=== PATIENT | male | born 1965 | race Hispanic/Latino ===

== ENCOUNTER 2018-09-09 12:57 | Inpatient (IN) | payer OTHER ==
[2018-09-09 14:13] LABS: #Eosinphils 0.1 thou/uL (0.0-0.7); #Lymphocytes 0.4 thou/uL (1.20-3.40); #Monocytes 0.3 thou/uL (0.11-0.59); #Neutrophils 2.2 thou/uL (1.40-6.50); %Basophils 1.3 % (0.0-1.0); %Eosinophils 4.5 % (0.0-10.0); %Lymphocytes 12.7 % (21.0-51.0); %Monocytes 8.4 % (0.0-10.0); %Neutrophils 73.2 % (42.0-75.0); Mean Corpuscular HGB CONC 33.9 g/dL (32.0-36.0); Mean Corpuscular Hemoglobin 31.7 pg (27.0-31.0); Mean Corpuscular Volume 93.5 fL (78.0-98.0); Mean Platelet Volume 6.5 fL (7.4-10.4); Platelet Count 234 thou/uL (130-400); RBC Distribution Width 15.2 % (11.5-14.5); Red Blood Cell (RBC) Count 2.53 mill/uL (4.70-6.10)
[2018-09-09 14:32] LABS: ALT (SGPT) 13 U/L (8-55); AST (SGOT) 8 U/L (5-34); Albumin 2.8 g/dL (3.5-5.0); Alkaline Phosphatase 145 U/L (40-150); Anion Gap 11 mmol/L (10-20); BUN (Urea Nitrogen) 45 mg/dL (8.4-25.7); Bilirubin, Total 0.5 mg/dL (0.2-1.2); Calc. Creatinine Clearance 0 mL/min (70-130); Carbon Dioxide 14 mmol/L (22-29); Chloride 105 mmol/L (98-107); Estimated GFR-MDRD 27; Globulin 3.8 g/dL (2.4-3.5); Potassium 4.5 mmol/L (3.5-5.1); Protein, Total 6.6 g/dL (6.0-8.3); Sodium 125 mmol/L (136-145)
[2018-09-09 14:35] LABS: Glucose 697 mg/dL (70-105)
--- NOTE | 2018-09-09 16:15 | HP ---
PRIMARY CARE PHYSICIAN: City call admission. REASON FOR ADMISSION: The patient is an inmate transfer from [facility] for hematemesis. HISTORY OF PRESENT ILLNESS: A 53-year-old male who appears older than his stated age who has underlying history of cirrhosis of liver with portal hypertension. He also has underlying esophageal varices. He was having upper GI bleed. There was no bed available at [facility] and that is why patient was transferred. He evaluated at [place]. Patient was started on octreotide drip and Protonix drip. The patient is transferred to higher level of care. Patient also has underlying diabetes type 2, insulin requiring. He was diagnosed with hepatic encephalopathy and hyperglycemia. At this point, patient is not able to provide any good history because of underlying lethargy and mental status change. Dr. Bustamante, GI specialist already evaluated in the emergency room, this patient will be admitted to Intermediate Care Unit for close monitoring. REVIEW OF SYSTEMS: All review of systems tried to review with the patient, but unable to review because of his level of mental status. PAST MEDICAL HISTORY: Based on his medication, patient has dyslipidemia, recurrent hepatic encephalopathy, hypertension, chronic anemia, cirrhosis of liver with portal hypertension, esophageal varices, hypertension, hypothyroidism , gastroesophageal reflux disease, benign enlargement of prostate, asthma, diabetes type 2. PAST PSYCHIATRIC HISTORY: Anxiety and depression. PAST SURGICAL HISTORY: Patient is not able to provide any previous surgical history at this point because of his cognitive status. FAMILY HISTORY: The patient is not able to provide any family history because of his cognitive status. ALLERGIES: No known drug allergy. SOCIAL HISTORY: Pt is from [facility], he currently denies alcohol abuse, smoking or drug abuse. CURRENT HOME MEDICATIONS: Lipitor 40 mg p.o. at bedtime, rifaximin 600 mg twice daily, Coreg 12.5 mg twice daily, ferrous sulfate 325 mg twice daily, Lasix 40 mg twice daily, hydralazine 25 mg 3 times daily, lactulose 10 grams twice daily, levothyroxine 100 mcg p.o. daily, omeprazole 20 mg p.o. daily, ranitidine 150 mg twice daily, terazosin 5 mg p.o. daily, Proventil inhaler as needed basis, Benadryl 25 mg at bedtime, Cymbalta 30 mg p.o. daily, Novolin R 3 units subcu twice daily, Lantus 4 units subcu twice daily, Zoloft 50 mg p.o. at bedtime. EMERGENCY ROOM COURSE: Patient is given Protonix drip and octreotide drip. The patient is also given Zofran 8 mg and insulin 8 units subcu at other emergency room. PHYSICAL EXAMINATION: VITAL SIGNS: Currently, blood pressure 150/98, pulse 60, respiratory rate 18, temperature 98.0, saturation 100% on room air, weight 81 kilograms. GENERAL: Patient is appearing older than his stated age. He is hypertensive. He is incoherent. HEAD: Normocephalic. Baldness noted. Atraumatic. EYES: Icterus noted. No nystagmus. ENT: Oropharynx within normal limits. Dry appearing mucous membranes, no oral lesion, no pharyngeal erythema. Pallor mucous membranes. NECK: Supple, no JVD, no thyromegaly, no carotid bruit. LUNGS: Clear to auscultation without any rhonchi or rales. CARDIAC: S1, S2 regular. Hemic murmur noted, no gallop, no rub. ABDOMEN: Soft. Ascites noted and umbilical hernia noted. No tenderness, no peritoneal sign, no guarding, no rigidity, no rebound. BACK: Examination unremarkable, no CVA tenderness. EXTREMITIES: Upper extremity passive movements of all joints are normal. Lower extremities: No edema. Good distal pulsation. SKIN: No skin rash, pallor skin, icterus noted on the skin. PSYCHIATRIC: Flat affect. NEUROLOGIC: Grossly nonfocal examination. Asterixis noted. HEMATOLOGIC: No lymphadenopathy. Pallor plus. SIGNIFICANT LABORATORY DATA: 1. Hemoglobin 7.3 at other emergency room, hematocrit 22, glucose 997, sodium 122. Troponin negative. Ammonia 70. Currently, CBC; WBC 3.0, hemoglobin 8.0, platelet 234. BMP: Sodium 125, potassium 4.5, chloride 105, carbon dioxide 14 , anion gap 11, BUN 45, creatinine 2.53, glucose 697, calcium 8.0. 2. LFT: AST 8, ALT 13, alkaline phosphatase 145, albumin 2.8. ASSESSMENT AND PLAN/IMPRESSION: 1. Acute hepatic encephalopathy. Patient has elevated ammonia, likely related with cirrhosis of liver and precipitated by gastrointestinal bleed. The patient will be given lactulose 30 mL p.o. b.i.d. and as needed basis. We will also continue rifaximin 550 mg twice daily. 2. Acute upper gastrointestinal bleed, most likely related with cirrhosis of liver with portal hypertension and esophageal varices. Stave Saw Operator already consulted and evaluated this patient and he will need upper endoscopic evaluation. We will closely monitor in IMCU. We will continue to treat with octreotide drip, Protonix drip and monitor hemoglobin and hematocrit. If hemoglobin drops below 8, then we will consider transfusion. 3. Anemia due to acute blood loss. Currently, hemoglobin is stable and better than other emergency room. We will monitor the H&H and consider transfusion below hemoglobin 8. 4. Acute kidney failure. The patient has acute kidney failure. We will give him IV fluid with half NS at 75 mL per hour and we will monitor renal function. Nephrology will be consulted. 5. Hyponatremia likely due to pseudohyponatremia from hyperglycemia as well as from cirrhosis. We will check urine sodium, creatinine, plasma and urine osmolarity. We will also check TSH and random cortisol. Nephrology on the case. 6. SBP prophylaxis. Because of acute GI bleed, we will continue with Rocephin 1 gram q.24 hours for SBP prophylaxis. 7. Hyperglycemia associated with diabetes type 2. We will check hemoglobin A1c. We will monitor Accu-Chek every 2 hourly and cover with insulin as per sliding scale. We will also start Lantus 5 units subcutaneously b.i.d. 8. Hypothermia, rule out sepsis, likely related with blood loss, currently resolved. 9. Hypertension. We will use p.r.n. blood pressure medication, hydralazine and labetalol for blood pressure more than 160. 10. Anxiety and depression. We will hold on current home medications Cymbalta and we will resume when patient is more stable. We will also resume Zoloft when patient is more stable. 11. Dyslipidemia. We will resume Lipitor 40 mg p.o. at bedtime when patient is able to take p.o. 12. Hypothyroidism. We will continue Synthroid 100 mcg p.o. daily when patient able to take p.o. 13. Deep venous thrombosis prophylaxis. Sequential compression device boots only. No Lovenox because of bleeding. 14. Gastrointestinal prophylaxis, Protonix 40 mg IV b.i.d. 15. Code status: The patient is FULL CODE. The patient does not have any surrogate decision maker. Disposition plan based on clinical course. We are expecting patient's stay in hospital more than 2 midnights. Plan of care discussed with the patient in detail. EMETERIO
[2018-09-09] MEDS ORDERED: Sodium Chloride 0.9% 1,000 ML IV SCH (17:15)
[2018-09-09] MEDS ORDERED: Octreotide Acetate 1,250 MCG in Sodium Chloride 0.9% 250 ML 250 ML IVPB SCH (17:20)
[2018-09-09] MEDS ORDERED: Labetalol HCl 100 MG/20 ML VIAL SLOW IVP PRN (17:20)
[2018-09-09] MEDS ORDERED: Dextrose 50% Abboject 50 ML SYRINGE SLOW IVP PRN (17:20)
[2018-09-09] MEDS ORDERED: Ondansetron PF 4 MG/2 ML Vial IVP PRN (17:20)
[2018-09-09] MEDS ORDERED: Dextrose 5% in Water 1,000 ML IV PRN (17:20)
[2018-09-09] MEDS ORDERED: Bisacodyl 10 MG SUPP PR PRN (17:20)
[2018-09-09] MEDS ORDERED: hydrALAZINE 20 MG/ML VIAL SLOW IVP PRN (17:20)
[2018-09-09] MEDS ORDERED: Eucerin (Mineral Oil/Petrolatum,White) 30 gm Jar TOP PRN (17:20)
[2018-09-09] MEDS ORDERED: Sodium Chloride 0.65% Nasal 44 ML BOT EA NARE PRN (17:20)
[2018-09-09] MEDS ORDERED: Artificial Tears 18 DROP/0.9 ML EA EYE PRN (17:20)
[2018-09-09] MEDS: cefTRIAXone\\ROCEPHIN 1 GM in Sodium Chloride 0.9% 100 ML IVPB SCH (18:01)
[2018-09-09] MEDS: Sodium Chloride 0.45% 1,000 ML IV SCH (18:03)
[2018-09-09 18:32] LABS: INR-International Normal Ratio 1.1; Prothrombin Time 14.5 SEC (12.0-14.7)
[2018-09-09 18:40] LABS: Magnesium 1.8 mg/dL (1.6-2.6)
[2018-09-09 18:57] LABS: Bilirubin Negative (Negative); Blood, Urine Large (Negative); Clarity CLEAR (Clear); Glucose, Urine (Dipstick) >=1000 mg/dL (Negative); Leukocyte Negative (Negative); Nitrite Negative (Negative); Protein, Urine (Dipstick) 100 mg/dL (Neg-Trace); Specific Gravity, Urine 1.019 (1.002-1.036)
[2018-09-09 18:58] LABS: Bacteria/HPF None Seen HPF (None Seen); Hyaline Casts/LPF 0-3 HYALINE CAST LPF (0-3 Hyaline); Pathc Cast-AUWi Flag 0.14 (0-2.49); RBC/HPF 21-50 HPF (0-3); Squamous Epithelial None Seen HPF (0-3)
[2018-09-09 19:07] LABS: Ferritin 304.55 ng/mL (22-322)
[2018-09-09 19:08] LABS: Thyroid Stimulating Hormone 2.5771 uIU/mL (0.35-4.94)
[2018-09-09 19:17] LABS: Osmolality, Urine 400 mOsm/kg (300-900)
[2018-09-09 19:24] LABS: HBCM Index 0.11 S/CO (0-0.79); HBSAg Index 0.21 S/CO (0-0.99); Hep A IgM AB Non-Reactive (NonReactive); Hep A IgM S/CO 0.18 S/CO (0-0.79); Hep B Surf Ag Non-Reactive S/CO (NonReactive); Hepatitis B Core IGM Abs Non-Reactive (NonReactive)
[2018-09-09 19:25] LABS: Sodium, Urine 21 mmol/L (Not Available)
[2018-09-09 20:12] LABS: Hep C IgG Ab Reflex HepC Qnt (NonReactive)
[2018-09-09 20:13] LABS: Hep C Index 12.97 S/CO (0-0.79)
[2018-09-09] MEDS: Pantoprazole 40 MG VIAL IVP SCH (20:22)
[2018-09-09] MEDS: HumaLOG 300 UNITS/3 ML VIAL SC PRN (20:22)
[2018-09-09] MEDS: Insulin Glargine 5 UNITS in Pre-Filled Syringe SC SCH (20:22)
--- NOTE | 2018-09-09 20:50 | CON ---
DATE OF CONSULTATION: 09/09/2018 REQUESTING PHYSICIAN: Maryellen Ashraf M.D. REASON FOR CONSULTATION: Hematemesis. HISTORY OF PRESENT ILLNESS: Delfino Zamora is a 53-year-old man who was transferred here from the [facility] Emergency Department, as evidently [facility] did not have any available beds. His history is obtained completely through the medical record as he is currently encephalopathic and can give me no details on his history at all. He does come with some helpful records regarding his recent hospi talization at [facility]. 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 Burke schwarz has a history of hepatic encephalopathy and ascites, for which he has undergone TIPS placement in t he past. He also has severe diabetes which is poorly controlled and chronic kidney disease. He also evidently has a history of esophageal cancer and has undergone chemotherapy for this, though I canno t see any other details on when this was and what the outcome was, etc. At any rate, he was recently hospitalized to [facility] for 2 weeks from 08/22/2018-09/05/2018 and just got out a few days ago. Hospit al records from that time list diagnosis of hepatic encephalopathy, for which he was treated with lac tulose and rifaximin, also chronic anemia. Note, his hemoglobin was 7.4 on discharge from the hospit al. He had ascites and had a diagnostic paracentesis, which was negative for SBP. He was diuresed d uring that hospitalization. There is also a note that Interventional Radiology interrogated his TIPS and it was found to be patent, and no further intervention on the tips was recommended, particularly with potential to worsen hepatic encephalopathy. There is also a note that he had multiple episodes of hematemesis during that admission, but that hemoglobin was stable and this was managed conservati vely without endoscopy, because his last EGD in 05/2018, evidently demonstrated no varices. I do not have any formal EGD reports, and again I am unsure as to the status of the esophageal cancer. At any rate, the patient evidently presented to the [facility] early this morning after having an episode of acute hematemesis. The notes merely state that he was covered in red bloo d and evidently was again encephalopathic. Laboratory studies from that emergency department demonst rated hemoglobin 7.3, really not much change from his recent discharge hemoglobin. His INR was 1.2. Ammonia was 70 and glucose was 997. He was transferred here for further evaluation and management. Upon arrival, there has been no further emesis. The patient has been hemodynamically stable. He is grossly encephalopathic, can only answer limited yes or no questions regarding his symptoms. He has not had any bowel movements to suggest melena or hematochezia. He is not currently complaining of a ny abdominal pain, nausea, specifically when I asked. REVIEW OF SYSTEMS: Unable to obtain complete review of systems due to the degree of the patient's en cephalopathy. PAST MEDICAL HISTORY: Hepatic encephalopathy; TIPS placement; cirrhosis secondary to hepatitis C, ge notype 3A; diabetes; BPH; urinary retention; chronic kidney disease stage 3; esophageal cancer, stat us post chemotherapy, I do not have any other details on this; recent EGD in 05/2017, evidently showi ng no esophageal varices; ascites; chronic anemia. ALLERGIES: No known drug allergies. OUTPATIENT MEDICATIONS: Lipitor, rifaximin 600 mg twice daily, Coreg, ferrous sulfate 325 mg twice d aily, Lasix 40 mg twice daily, hydralazine, lactulose 10 grams twice daily, levothyroxine 100 mcg trista ly, omeprazole 20 mg daily, Ranitidine 150 mg twice daily, terazosin, albuterol inhaler as needed, Be nadryl 25 mg at bedtime, Cymbalta, Novolin insulin, Lantus insulin, Zoloft. FAMILY HISTORY: Unable to obtain from the patient due to his cognitive status. SOCIAL HISTORY: I note that the patient is incarcerated, unable to obtain any further social history due to the patient's altered mental status. PHYSICAL EXAMINATION: VITAL SIGNS: Pulse 69, blood pressure 173/103, 100% oxygen saturation on room air. GENERAL: A 53-year-old man lying in bed comfortably, in no distress but overtly encephalopathic. SKIN: He is pale. He has tattoos covering most of his body and neck. No jaundice. EYES: No scleral icterus. Extraocular movements intact. ENT: Mucous membranes moist, no oral lesions. LYMPH: No submandibular or supraclavicular lymphadenopathy. THYROID: Nontender to palpation. MENTAL: He is somnolent though arousable. He can tell me his first name, he cannot tell me the date or where he is. He cannot even tell me his date of . HEART: Regular rate and rhythm. LUNGS: Clear to auscultation bilaterally. ABDOMEN: Mild distention. Dull to percussion in the flanks. Bowel sounds present, soft and nontend er to deep palpation throughout. No masses or organomegaly appreciated. EXTREMITIES: No peripheral edema. VESSELS: Radial pulses 2+ bilaterally. NEUROLOGICAL: Cranial nerves II-XII appear to be intact bilaterally. He moves all extremities. LABORATORY STUDIES: INR 1.2, ammonia 70. WBC 3; hemoglobin is 8.0, slightly up from the other ER; p latelets 234; MCV 93.5. Sodium 125, potassium 4.5, BUN 45, creatinine 2.53, glucose 697. LFTs are a ctually all essentially normal with total bilirubin 0.5, alkaline phosphatase 145, AST 8, ALT 13, alb umin 2.8. ASSESSMENT: 1. Hematemesis, acute. 2. History of esophageal cancer. 3. Chronic anemia, appears to be at recent baseline. PLAN: 1. I note that during the patient's recent hospitalization at [facility], it was documented to have severa l episodes of hematemesis which were all managed conservatively, his hemoglobin never dropped. Note that he really does not have any prior history of esophageal varices and he has had a TIPS placement which was recently interrogated and found to be patent, so he really should not have any manifestatio ns of portal hypertension. Clinically, this does not represent a variceal bleed and I think the octr eotide could be discontinued. On the other hand, I do not have any actual reports from any of his pr ior EGDs, and I really am not clear on the status of his esophageal cancer other than that, it was ev idently treated with chemotherapy. I do think it would be reasonable to perform upper endoscopy this admission, though not urgently. Agree with a PPI drip for now, and we will plan for diagnostic EGD tomorrow. Obviously, trend the H&H and transfuse as needed. 2. Hepatic encephalopathy. This is quite overt at this time. Unclear what his compliance has been with lactulose and rifaximin. Please resume lactulose and rifaximin. 3. 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 Notably, his INR is 1.2, creatinine 2.53. A FP was evidently normal during recent hospitalization. He gets his care through the residential system at [facility], and following this hospitalization, liver care should be resumed there. I do not see any clin ical evidence suggestive of SBP, and recent diagnostic paracentesis during his recent hospitalization was evidently negative for SBP. I see no reason to repeat paracentesis at this time. I do agree wi th the Rocephin for SBP prophylaxis in the context of gastrointestinal bleeding in a cirrhotic patien t. We will see for EGD tomorrow morning. Further recommendations following endoscopy. Please call back anytime with questions or concerns.
[2018-09-09 23:04] LABS: Hemoglobin 8.8 g/dL (14.0-18.0)
[2018-09-10 03:38] LABS: #Eosinphils 0.3 thou/uL (0.0-0.7); #Lymphocytes 0.5 thou/uL (1.20-3.40); #Monocytes 0.4 thou/uL (0.11-0.59); #Neutrophils 2.4 thou/uL (1.40-6.50); %Basophils 0.7 % (0.0-1.0); %Eosinophils 8.3 % (0.0-10.0); %Lymphocytes 13.7 % (21.0-51.0); %Monocytes 9.9 % (0.0-10.0); %Neutrophils 67.4 % (42.0-75.0); Hemoglobin 8.7 g/dL (14.0-18.0); Mean Corpuscular HGB CONC 34.5 g/dL (32.0-36.0); Mean Corpuscular Hemoglobin 31.3 pg (27.0-31.0); Mean Corpuscular Volume 90.8 fL (78.0-98.0); Mean Platelet Volume 6.3 fL (7.4-10.4); Platelet Count 221 thou/uL (130-400); RBC Distribution Width 14.7 % (11.5-14.5); Red Blood Cell (RBC) Count 2.78 mill/uL (4.70-6.10); White Blood Cell (WBC) Count 3.6 thou/uL (4.8-10.8)
[2018-09-10 03:55] LABS: ALT (SGPT) 12 U/L (8-55); Albumin 2.5 g/dL (3.5-5.0); Alkaline Phosphatase 108 U/L (40-150); Anion Gap 9 mmol/L (10-20); BUN (Urea Nitrogen) 44 mg/dL (8.4-25.7); Bilirubin, Total 0.7 mg/dL (0.2-1.2); Calc. Creatinine Clearance 39 mL/min (70-130); Calcium 7.9 mg/dL (7.8-10.44); Carbon Dioxide 17 mmol/L (22-29); Chloride 108 mmol/L (98-107); Estimated GFR-MDRD 29; Globulin 3.5 g/dL (2.4-3.5); Glucose 231 mg/dL (70-105); Potassium 4.3 mmol/L (3.5-5.1); Sodium 130 mmol/L (136-145)
[2018-09-10 04:04] LABS: AST (SGOT) 11 U/L (5-34)
[2018-09-10] MEDS: Insulin Glargine 5 UNITS in Pre-Filled Syringe SC SCH ×2 (08:46→20:55)
[2018-09-10] MEDS: Pantoprazole 40 MG VIAL IVP SCH ×2 (08:46→20:40)
[2018-09-10] MEDS: Sodium Chloride 0.45% 1,000 ML IV SCH ×2 (08:47→15:45)
[2018-09-10] MEDS ORDERED: PHENYLEPHRINE-NS 100 MCG/ML 10 ML SYRINGE ONE (09:31)
[2018-09-10] MEDS ORDERED: Succinylcholine Chloride 20 MG/ML 10 ml SYRINGE FS ONE (09:31)
[2018-09-10] MEDS ORDERED: ePHEDrine/0.9% NaCl/PF SYRINGE 50 mg/10 ml ONE (09:31)
[2018-09-10] MEDS ORDERED: PROPOFOL 200 MG/20 ML VIAL ONE (09:31)
[2018-09-10] MEDS: HumaLOG 300 UNITS/3 ML VIAL SC PRN (10:02)
--- NOTE | 2018-09-10 10:27 | PDOC.PN ---
- Subjective Encounter Start Date: 09/10/18 Encounter Start Time: 09:10 -: old records requested/rev Patient seen and examined. No new complaints. No overnight events - Objective Resuscitation Status: Resuscitation Status FULL:Full Resuscitation MAR Reviewed: Yes Vital Signs & Weight: Vital Signs (12 hours) Temp Pulse Resp BP Pulse Ox 09/10/18 08:00 100 09/10/18 07:34 98.0 F 60 16 156/99 H 98 09/10/18 04:27 97.3 F L 59 L 15 157/103 H 100 09/10/18 00:37 97.5 F L 62 12 177/109 H 100 Weight Weight 171 lb I&O: 09/09/18 09/10/18 09/11/18 06:59 06:59 06:59 Intake Total 1393 Output Total 700 Balance 693 Result Diagrams: 09/10/18 03:10 09/10/18 03:10 Additional Labs: Accuchecks 09/10/18 09/10/18 09/10/18 10:00 08:05 06:16 POC Glucose 231 H 231 H 224 H 09/10/18 09/10/18 09/10/18 04:35 02:02 00:56 POC Glucose 224 H 241 H 250 H 09/09/18 09/09/18 09/09/18 22:06 20:07 17:16 POC Glucose 350 H 390 H 478 H 09/09/18 16:47 POC Glucose 497 H EKG Reviewed by me: Yes (nsr) Phys Exam - Physical Examination Constitutional: NAD HEENT: PERRLA, moist MMs icterus+ pallor+ Neck: no JVD, supple Respiratory: no wheezing, no rales, no rhonchi Cardiovascular: RRR, no significant murmur, no rub Gastrointestinal: soft, positive bowel sounds ascites+, umbilical hernia+ Musculoskeletal: no edema, pulses present Neurological: non-focal, normal sensation Lymphatic: no nodes Psychiatric: normal affect Skin: no rash, normal turgor Dx/Plan (1) Acute worsening of stage 3 chronic kidney disease Code(s): N18.3 - CHRONIC KIDNEY DISEASE, STAGE 3 (MODERATE) Status: Acute (2) Anemia due to acute blood loss Code(s): D62 - ACUTE POSTHEMORRHAGIC ANEMIA Status: Acute (3) Hepatic encephalopathy Code(s): K72.90 - HEPATIC FAILURE, UNSPECIFIED WITHOUT COMA Status: Acute (4) Hyperglycemia due to type 2 diabetes mellitus Code(s): E11.65 - TYPE 2 DIABETES MELLITUS WITH HYPERGLYCEMIA Status: Acute (5) Hyponatremia Code(s): E87.1 - HYPO-OSMOLALITY AND HYPONATREMIA Status: Acute (6) Upper GI bleed Code(s): K92.2 - GASTROINTESTINAL HEMORRHAGE, UNSPECIFIED Status: Acute (7) Anxiety and depression Code(s): F41.9 - ANXIETY DISORDER, UNSPECIFIED; F32.9 - MAJOR DEPRESSIVE DISORDER, SINGLE EPISODE, UNSPECIFIED Status: Chronic (8) Chronic hepatitis C Code(s): B18.2 - CHRONIC VIRAL HEPATITIS C Status: Chronic (9) Diabetic nephropathy Status: Chronic (10) Dyslipidemia Code(s): E78.5 - HYPERLIPIDEMIA, UNSPECIFIED Status: Chronic (11) H/O malignant neoplasm of esophagus Code(s): Z85.01 - PERSONAL HISTORY OF MALIGNANT NEOPLASM OF ESOPHAGUS Status: Chronic (12) Hepatic cirrhosis due to chronic hepatitis C infection Code(s): B18.2 - CHRONIC VIRAL HEPATITIS C; K74.60 - UNSPECIFIED CIRRHOSIS OF LIVER Status: Chronic (13) Hypertension Code(s): I10 - ESSENTIAL (PRIMARY) HYPERTENSION Status: Chronic (14) Hypothyroidism Code(s): E03.9 - HYPOTHYROIDISM, UNSPECIFIED Status: Chronic - Plan cont current plan of care, continue antibiotics * today plan for EGD * based on that finding, will consider dc octreotide drip * continue iv protonix * H & H remained stable, * will consider transfer to medical floor later today after egd finding * nephrology and GI on case * medication reviewed as below * symptomatic treatment. Review of Systems - Review of Systems ENT: negative: Ear Pain, Ear Discharge, Nose Pain, Nose Discharge, Nose Congestion, Mouth Pain, Mouth Swelling, Throat Pain, Throat Swelling, Other Respiratory: negative: Cough, Dry, Shortness of Breath, Hemoptysis, SOB with Excertion, Pleuritic Pain, Sputum, Wheezing Cardiovascular: negative: chest pain, palpitations, orthopnea, paroxysmal nocturnal dyspnea, edema, light headedness, other Gastrointestinal: negative: Nausea, Vomiting, Abdominal Pain, Diarrhea, Constipation, Melena, Hematochezia, Other Genitourinary: negative: Dysuria, Frequency, Incontinence, Hematuria, Retention , Other Musculoskeletal: negative: Neck Pain, Shoulder Pain, Arm Pain, Back Pain, Hand Pain, Leg Pain, Foot Pain, Other - Medications/Allergies Allergies/Adverse Reactions: Allergies Allergy/AdvReac Type Severity Reaction Status Date / Time No Known Allergies Allergy Unverified 09/09/18 17:13 Medications: Current Medications Acetaminophen (Tylenol) 650 mg PO Q4H PRN PRN Reason: Headache/Fever/Mild Pain (1-3) Albuterol/Ipratropium (Duoneb) 3 ml NEB [id number] PRN PRN Reason: SOB &/or Wheezing Artificial Tears (Tears Naturale) 2 drop EA EYE PRN PRN PRN Reason: Dry Eyes Bisacodyl (Dulcolax) 10 mg PA DAILYPRN PRN PRN Reason: Constipation Dextrose/Water (Dextrose 50%) 25 gm SLOW IVP PRN PRN PRN Reason: Hypoglycemia Glucagon (Glucagon) 1 mg IM PRN PRN PRN Reason: Hypoglycemia Hydralazine HCl (Apresoline) 10 mg SLOW IVP Q4H PRN PRN Reason: SBP GREATER THAN 160 Ceftriaxone Sodium 1 gm/ (Sodium Chloride) 100 mls @ 200 mls/hr IVPB Q24HR [facility] Last Admin: 09/09/18 18:01 Dose: 100 mls Sodium Chloride (1/2 Normal Saline) 1,000 mls @ 75 mls/hr IV .[id number] [facility] Last Admin: 09/10/18 08:47 Dose: 1,000 mls Dextrose/Water (D5w) 1,000 mls @ 0 mls/hr IV .Q0M PRN PRN Reason: Hypoglycemia Insulin Glargine 5 units/ (Miscellaneous Medication) 0.05 mls @ 0 mls/hr SC HS [facility] Last Admin: 09/09/18 20:22 Dose: 0.05 mls Octreotide Acetate 1,250 mcg/ (Sodium Chloride) 251.25 mls @ 10.05 mls/hr IVPB INF [facility] Last Admin: 09/09/18 18:01 Dose: 251.25 mls Insulin Glargine 5 units/ (Miscellaneous Medication) 0.05 mls @ 0 mls/hr SC QAM [facility] Last Admin: 09/10/18 08:46 Dose: 0.05 mls Insulin Human Lispro (Humalog) 0 units SC .BEDTIME SLIDING SC PRN PRN Reason: Bedtime Correctional Scale Last Admin: 09/10/18 10:02 Dose: 2 unit Insulin Human Lispro (Humalog) 0 units SC .MODERATE SLIDING SC PRN PRN Reason: Moderate Correctional Scale Labetalol HCl (Normodyne) 20 mg SLOW IVP Q4H PRN PRN Reason: SBP GREATER THAN 160 Lactulose (Lactulose) 30 gm PO BID [facility] Last Admin: 09/10/18 08:45 Dose: 30 gm Mineral Oil/White Petrolatum (Eucerin Cream) 0 gm TOP BIDPRN PRN PRN Reason: Dry Skin Ondansetron HCl (Zofran) 4 mg IVP Q6H PRN PRN Reason: Nausea/Vomiting Pantoprazole Sodium (Protonix) 40 mg IVP Q12HR [facility] Last Admin: 09/10/18 08:46 Dose: 40 mg Pneumococcal 13-Valent Conj Vacc (Prevnar) 0.5 ml IM .ONCE ONE Stop: 09/11/18 09:01 Sodium Chloride ([place]phy Nasal [place] 0.65%) 0 ml EA NARE QIDPRN PRN PRN Reason: Nasal Congestion Sodium Chloride (Flush - Normal Saline) 10 ml IVF Q12HR [facility] Last Admin: 09/10/18 08:46 Dose: 10 ml Sodium Chloride (Flush - Normal Saline) 10 ml IVF PRN PRN PRN Reason: Saline Flush
[2018-09-10] MEDS ORDERED: Sodium Chloride For Inhalation 0.9% 3 ML NEB ONE ×2 (12:09→12:11)
--- NOTE | 2018-09-10 12:46 | RAD ---
FRONTAL VIEW CHEST: COMPARISON: No prior comparison. INDICATION: Postoperative evaluation. FINDINGS: There is hypoinflation of the lungs. Prominence of each hilar region likely relates to vascular patricia estion. There is enlargement of the cardiac silhouette. No significant effusion or discrete pneumot horax. IMPRESSION: Findings indicate congestive heart failure. Correlate clinically. Imaging followup may also be obta ined. POS: [facility]
[2018-09-10] MEDS: Piperacillin/Tazobactam 2.25 GM in Sodium Chloride 0.9% 100 ML IVPB SCH ×2 (13:28→22:01)
[2018-09-10] MEDS: Albumin 25% 25 GM/100 ML BOT IVPB SCH ×3 (13:28→23:42)
--- NOTE | 2018-09-10 14:06 | CON ---
DATE OF CONSULTATION: 09/10/2018 SERVICE: Renal Medicine. SUBJECTIVE: Mr. Zamora is a 53-year-old male, currently an inmate at [facility] and admit blossom for hematemesis/acute GI bleed. We were consulted for his acute kidney injury?. He has been josh luated by the GI service and the plan is for him to undergo an upper GI endoscopy. REVIEW OF SYSTEMS: Positive for hematemesis. No chest pain or shortness of breath. Positive for co nfusion. Positive for nausea, no diarrhea. Denies any hematemesis or melena. No abdominal pain, no headache, no diplopia, no fever or chills. MEDICATIONS: Currently on DuoNeb q.6 hours, Dulcolax p.r.n., ceftriaxone 1 gram q.24 hours, insulin 5 units subcu at bedtime and 5 units subcu q.a.m. Humalog sliding scale, lactulose 30 grams p.o. b.i. d., octreotide drip, Zofran 4 mg IV q.6 hours, Protonix 40 mg IV q.12 hours., half normal saline 75 mL per hour. PAST MEDICAL HISTORY: Includes the following, cirrhosis with portal hypertension and esophageal vari jacob, dyslipidemia, type 2 diabetes mellitus, hypertension, BPH, COPD/asthma, hypothyroidism. PAST SURGICAL HISTORY: Unknown. ALLERGIES: No known drug allergies. TRAUMA: None. IMMUNIZATIONS: Up to date. HOSPITALIZATIONS: Please see past medical history. SOCIAL HISTORY: The patient is currently an inmate at [facility] in [place]. No IV drug use, no alcohol. No smoking. Sedentary lifestyle. FAMILY HISTORY: Noncontributory. PHYSICAL EXAMINATION: VITAL SIGNS: Blood pressure is noted at 156/99, heart rate 60, respiratory rate 16, temperature 98, pulse ox 98%. GENERAL: Awake, alert, comfortable, oriented, not in distress. SKIN: Adequate turgor. HEENT: Pale conjunctivae, anicteric sclerae. NECK: No neck mass, no carotid bruits, no JVD. CHEST: No deformities. LUNGS: Clear breath sounds. HEART: Normal sinus rhythm. No murmur, no gallops or rubs. ABDOMEN: Globular, soft, nontender, no masses. EXTREMITIES: No edema, no deformities. NEUROLOGIC: Awake, oriented to 3 spheres. Moving all extremities. LABORATORY DATA: Of 09/09/2018, sodium 125, potassium 4.5, chloride 105, carbon dioxide 14, BUN 45, creatinine 2.53, glucose 697, calcium 8.0, AST 8, ALT 13, albumin 2.8. On 09/10/2018, sodium 130, po tassium 4.3, chloride 108, carbon dioxide 17, BUN 44, creatinine 2.36, albumin 2.5, glucose 231. ASSESSMENT AND PLAN: 1. Acute kidney injury - unclear if this patient has any underlying chronic renal failure since he i s diabetic. We will consider reviewing his urinalysis. For the moment, agree with optimizing hemody namics. I will add albumin 25 grams IV q.6 for 3 days. Continue IV hydration with normal saline. 2. Upper gastrointestinal bleed/hematemesis - for upper GI endoscopy with Dr. Bustamante. Continue suppor tive management. Currently, the patient is on octreotide. 3. Anemia, p.r.n. blood transfusion. 4. ? history of esophageal cancer - patient to undergo upper GI endoscopy with Dr. Bustamante. ADDENDUM: 1. The patient also has a history of hepatitis C and this may be the etiology of his cirrhosis. 2. Hyponatremia. Consider hypovolemic hyponatremia. No indication for any emergent dialysis. Continue supportive care.
--- NOTE | 2018-09-10 14:56 | ULT ---
RENAL ULTRASOUND: HISTORY: Renal failure. COMPARISON: None. TECHNIQUE: Sagittal and transverse images of the kidneys is performed. FINDINGS: There is increased echogenicity of the visualized hepatic parenchyma due to hepatic steatosis or hepa tocellular disease. There is evidence of ascites and bilateral pleural effusions. Left and right kidney have a normal cortical echotexture. No hydronephrosis. The right kidney measu res 10.9 x 5.2 x 5.9 cm. The left kidney measures 6.0 x 5.8 x 10.2 cm. The urinary bladder is decompressed due to Jain catheterization. IMPRESSION: 1. No evidence of hydronephrosis. 2. Additional findings as described above. POS: [facility]
--- NOTE | 2018-09-10 15:34 | OP ---
DATE OF PROCEDURE: 09/10/2018 GI ENDOSCOPY NOTE SURGEON: Calin Bustamante M.D. REJECT OPENER AND FILLER SURGEON: None. PROCEDURE: Esophagogastroduodenoscopy, diagnostic. INDICATIONS: 1. Hematemesis. 2. History of hepatitis C with cirrhosis. 3. Chronic anemia. 4. History of esophageal cancer status post chemotherapy and possibly radiation therapy. MEDICATIONS: See anesthesia record. FINDINGS: After discussion of the risks, benefits and alternatives of the procedure, informed consen t was obtained and witnessed. Pre-endoscopic cardiopulmonary examination was satisfactory. Timeout was performed before sedation was achieved. Sedation was achieved with anesthesia assistance in the endoscopy unit. The patient was placed in the left lateral decubitus position and given propofol for sedation. However, just before planned endoscope insertion, he vomited up some dark red blood. He was quickly suctioned and the decision was made to proceed with endotracheal intubation for airway pr otection during the procedure. He was endotracheally intubated. Then the procedure was able to star t. The Pentax adult upper endoscope was advanced through the oropharynx and into the esophagus. The re was some fresh red blood in the esophagus as well as few food particles. This was completely suct ioned and the esophagus was able to be examined. There is no evidence of any esophageal varices. Th e mucosa of the proximal, mid and distal esophagus appeared normal. However, at the GE junction, whi ch is at 33 cm from the incisors, there is a friable mass, which appears to represent residual malign eladio. This is ulcerated in several areas and there is active oozing of blood from the mass. Essenti ally circumferentially around the mass, there is significant friability and a lot of oozing from mult iple areas, representing radiation esophagitis. Just distal to the mass, there is a much deeper ulce rated area. There is oozing from this area as well. There is no active arterial bleeding, just a lo t of oozing from a significant surface area. The endoscope was advanced into the stomach. Forward a nd retroflexed views of the entire gastric mucosa were obtained. There were some food particles in t he fundus which took some time to evacuate but eventually I was able to get a good look at the fundus . There were no gastric varices. The gastric mucosa appears normal. The endoscope was advanced thr ough the pylorus and into the first and second portions of the duodenum, which also appeared normal. There was no endoscopically intervenable lesion noted on this exam. The upper endoscope was complet alfie withdrawn and the patient allowed to recover. The patient tolerated the procedure well. There w ere no immediate post-procedure complications. IMPRESSION: 1. Mass at the GE junction, likely representing residual malignancy following recent treatment, with a lot of friability and active slow oozing of blood. 2. 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 No arterial bleeding. 3. No evidence of esophageal or gastric varices. 4. Normal stomach and duodenum. RECOMMENDATIONS: 1. The patient needs to be on maximal acid suppression going forward. Would have him on IV Protonix 40 mg q.12 hours while here, switching to twice daily on discharge. 2. Clear liquid diet today. May advance diet as tolerated tomorrow if doing okay. 3. In the longer term, I expect that the patient will continue to slowly bleed from this mass and fr om this area of radiation esophagitis. There is really nothing we can do endoscopically to stop this . He would not really be a candidate for surgery on this area. Given the persistence of the mass at the GE junction following what appears to have been radiation therapy, his prognosis is very poor. Hospice care would not be inappropriate. Another consideration would be transfer back to his primary providers, Oncology and Liver Team at [facility]. Please call at any time with questions or concerns.
--- NOTE | 2018-09-10 15:51 | CON ---
DATE OF CONSULTATION: 09/10/2018 Delfino Zamora is a 53-year-old [place] gentleman, who presented with hematemesis. He underwent endoscopy and was found to have coffee-ground secretions, apparently aspirated, talking to Anesthesia down in the PAC unit. The patient is responsive. He is on a mask. He was transferred from [place] in the [place] [facility]. His H and H was 7 and 22 when he arrived with a blood sugar of 997. Sodium was 122. He normally see [place] care at [facility], but apparently no available beds. He was thus transferred here. His diagnoses in the past includes cirrhosis, congestive heart failure, diabetes, cancer of the esoph zhen, multiple varices. The patient is unable to give any history at this stage. He has had apparently multiple procedures done in the past. Previous surgeries are, otherwise, diffi cult to obtain. PAST MEDICAL HISTORY: Otherwise, pertinent for what sounds like hepatitis C, encephalopathy, renal f ailure, cancer of esophagus and chemotherapy, chronic anemia. This is from the records from the [facility]. MEDICATIONS: Include Hytrin 5 mg, ranitidine 150, albuterol, Synthroid 100, lactulose 10, hydralazin e 3 times a day, Lasix 40 twice a day, Coreg 12.5 twice a day, rifaximin 3 tablets twice a day, atorv astatin 40 once a day, Zoloft 50, insulin, and Cymbalta 30. ALLERGIES: He has apparently no allergies. PHYSICAL EXAMINATION: VITAL SIGNS: In the PAC unit, his saturations are 98%, pulse 73, blood pressure 130/80. CHEST: He has extensive rhonchi and crackles. CARDIAC: Normal S1 and S2, no gallops. ABDOMEN: Soft. No masses. LABORATORY DATA: Chest x-ray taken in the MICU shows no acute infiltrates. White count 3000, H and H is 8 and 25, platelet count 221, creatinine 2.3. Sodium 133, glucose is 231. IMPRESSION: 1. Status post upper GI endoscopy to assess question of aspiration of coffee grounds. 2. Chronic obstructive pulmonary disease. 3. Carcinoma of esophagus. 4. Cirrhosis, hepatitis C. 5. Encephalopathy. 6. Severe deconditioning. 7. Cachexia. 8. Renal failure. 9. Hyponatremia. 10. Diabetes. 11. Major depression, on multiple drugs. PLAN: I have added Zosyn to his antibiotic regimen. Aspiration pneumonia condition gets worse, it i s possible he may require intubation, aggressive neb treatments, supportive care. This is a 45-minute critical care time.
[2018-09-10] MEDS: Ferrous Sulfate 325 MG TAB PO SCH (17:50)
--- NOTE | 2018-09-10 18:03 | RAD ---
CHEST ONE VIEW: INDICATIONS: Shortness of breath. COMPARISON: Prior exam dated 09/10/2018. FINDINGS: There is persistent cardiomegaly and pulmonary vascular congestion. This appears similar to the prio r exam. The patient is slightly rotated, limiting the study. No mandy pleural effusion or pneumotho rax is evident. IMPRESSION: 1. Stable examination. 2. Cardiomegaly. 3. Mild pulmonary vascular congestion. POS: [facility]
[2018-09-10 18:10] LABS: Actual Bicarbonate (HCO3a) 14.4 mEq/L (22-28); Base Excess (BEa) -10.7 mEq/L (-2.0 to +3.0); CO2 Tension 29.4 mmHg (35.0-45.0); Calcium, Ionized 1.15 mmol/L (1.12-1.30); Carboxyhemoglobin (COHb) 0.2 gm% (0.0-3.0); Hemoglobin (Hb) 9.9 g/dL (14.0-18.0); O2 Tension (PaO2) 106.9 mmHg (80.0-100.0); Potassium - ABG Lab 4.53 mmol/L (3.70-5.30); pH, Arterial 7.31 (7.35-7.45)
[2018-09-10 18:12] LABS: Puncture Site RRA
[2018-09-10] MEDS ORDERED: Propofol 1,000 MG/100 ML VIAL IV ONE (18:22)
[2018-09-10] MEDS ORDERED: Ventilator Sedation Protocol 1 EACH FS SCH (18:30)
[2018-09-10] MEDS ORDERED: Fentanyl BOLUS 250 ML IVPB PRN (18:32)
[2018-09-10] MEDS ORDERED: Lorazepam 2 MG/ML VIAL SLOW IVP PRN (18:32)
[2018-09-10] MEDS ORDERED: Propofol BOLUS 1,000 MG/100 ML VIAL IV PRN (18:32)
[2018-09-10] MEDS ORDERED: fentaNYL Citrate/PF 2,000 MCG in Sodium Chloride 0.9% 60 ML IV SCH (18:32)
[2018-09-10] MEDS ORDERED: DISCONTINUE PREVIOUS NARCOTIC PAIN MEDICATIONS AND BENZODIAZEPINES FS SCH (18:32)
[2018-09-10] MEDS: cefTRIAXone\\ROCEPHIN 1 GM in Sodium Chloride 0.9% 100 ML IVPB SCH (19:42)
[2018-09-10] MEDS: Atorvastatin Calcium 40 MG TAB PO SCH (20:39)
[2018-09-10] MEDS: Furosemide 40 MG TAB PO SCH (20:39)
[2018-09-10] MEDS: Carvedilol 6.25 MG TAB PO SCH (20:39)
[2018-09-10] MEDS: Terazosin HCl 5 MG CAP PO SCH (20:39)
[2018-09-10] MEDS: hydrALAZINE 25 MG TAB PO SCH (20:54)
[2018-09-11 05:29] LABS: #Lymphocytes 0.6 thou/uL (1.20-3.40); #Monocytes 0.4 thou/uL (0.11-0.59); #Neutrophils 3.1 thou/uL (1.40-6.50); %Basophils 0.4 % (0.0-1.0); %Eosinophils 1.1 % (0.0-10.0); %Lymphocytes 13.9 % (21.0-51.0); %Monocytes 8.8 % (0.0-10.0); %Neutrophils 75.8 % (42.0-75.0); Hemoglobin 7.6 g/dL (14.0-18.0); Mean Corpuscular HGB CONC 35.1 g/dL (32.0-36.0); Mean Corpuscular Hemoglobin 31.8 pg (27.0-31.0); Mean Corpuscular Volume 90.5 fL (78.0-98.0); Mean Platelet Volume 6.7 fL (7.4-10.4); Platelet Count 166 thou/uL (130-400); RBC Distribution Width 15.1 % (11.5-14.5); Red Blood Cell (RBC) Count 2.38 mill/uL (4.70-6.10); White Blood Cell (WBC) Count 4.1 thou/uL (4.8-10.8)
[2018-09-11 05:35] LABS: Anion Gap 12 mmol/L (10-20); BUN (Urea Nitrogen) 40 mg/dL (8.4-25.7); Calc. Creatinine Clearance 43 mL/min (70-130); Calcium 8.1 mg/dL (7.8-10.44); Carbon Dioxide 14 mmol/L (22-29); Chloride 112 mmol/L (98-107); Estimated GFR-MDRD 32; Glucose 72 mg/dL (70-105); Sodium 134 mmol/L (136-145)
[2018-09-11] MEDS: Levothyroxine Sodium 100 MCG TAB PO SCH (06:11)
[2018-09-11] MEDS: Albumin 25% 25 GM/100 ML BOT IVPB SCH ×3 (06:11→17:56)
[2018-09-11] MEDS: Piperacillin/Tazobactam 2.25 GM in Sodium Chloride 0.9% 100 ML IVPB SCH ×3 (06:11→22:01)
[2018-09-11 07:22] LABS: Actual Bicarbonate (HCO3a) 15.3 mEq/L (22-28); Base Excess (BEa) -6.6 mEq/L (-2.0 to +3.0); Calcium, Ionized 1.09 mmol/L (1.12-1.30); Carboxyhemoglobin (COHb) 1.2 gm% (0.0-3.0); Hemoglobin (Hb) 7.5 g/dL (14.0-18.0); O2 Tension (PaO2) 123.6 mmHg (80.0-100.0); Potassium - ABG Lab 4.03 mmol/L (3.70-5.30); pH, Arterial 7.52 (7.35-7.45)
[2018-09-11 07:28] LABS: ALV-art Gradient 137.475 (0-20); CO2 Tension 19.3 mmHg (35.0-45.0); Puncture Site RB
--- NOTE | 2018-09-11 07:54 | PRG ---
DATE OF SERVICE: 09/11/2018 He was intubated yesterday for progressive respiratory failure. OBJECTIVE: VITAL SIGNS: Pulse 78, blood pressure 140/86, sat 100%, respirations 23. His I's and O's have been 1445 in, 1170 out. GENERAL: He opens his eyes. CHEST: Chest reveals bilateral rhonchi and crackles. CARDIAC: Normal S1, S2, no gallops. ABDOMEN: Soft. LABORATORY: White count 4000, H&H is 7 and 21, platelet count is 166, pO2 123, pCO2 19, pH 7.52, rat e of 20, 40%, 450 tidal volume. Creatinine is 2.3. IMPRESSION: 1. Gastrointestinal bleed. 2. Cirrhosis. 3. Aspiration pneumonia. 4. Encephalopathy. PLAN: We will continue antibiotics. Consider nutrition, supportive care and PT. One-half hour critical care time.
--- NOTE | 2018-09-11 07:59 | OP ---
I was called multiple times during the course of the day and Mr. Zamora underwent an upper GI endoscop y and apparently vomited and got aspirated. He was tachypneic, tachycardic, restless, breathing 30-4 0 times a minute. He was placed initially on noninvasive ventilation. In spite of this, he remained extremely agitated, tachypneic and tachycardic. His blood gas; pO2 is 106, pCO2 is 29, pH 7.31 on 5 0% BiPAP. His blood sugar 175. Chest x-ray surprisingly done prior to the intubation showed minimal bibasilar atelectatic changes, but otherwise was unremarkable. It is felt at this stage that clearl y patient was encephalopathic, severe respiratory distress. Need to be intubated. He is in the [facility] system, no one to get any additional history. A bite block was placed in and 7.5 endotracheal tub e was placed above the placed above the melinda without any difficulty. He was bagged, cuff was inflated. Thereafter, the bronchoscope was repassed again and the right lung was initially inspected right uppe r and right middle lobe. There was no endobronchial disease. There was dirty brown secretions sucti oned otherwise until clear. The left upper and left lower lung, no endobronchial disease, but dirty brown secretions also suctioned and lavaged to clear. The washings will be sent for Gram stain and C &S. He is connected to warm cycle respirator. NG tube is being placed. PHYSICAL EXAMINATION: VITAL SIGNS: Sats 100%, pulse 100, blood pressure is 130/80. CHEST: Extensive rhonchi. CARDIAC: Sinus tachycardia. ABDOMEN: Soft, without masses. IMPRESSION: 1. Respiratory failure, aspiration pneumonia. 2. End-stage liver disease, cirrhosis, GI bleed with encephalopathy. PLAN: Continue antibiotics for aspiration. IV fluids, supportive care. Prognosis remains guarded. This is one-half hour critical care time. To note, exclusive of the intubation and exclusive of the bronchoscopy and lavage and aspiration.
[2018-09-11] MEDS ORDERED: Prevnar 13-Val Conj/PF 0.5 ML SYRINGE IM ONE (09:00)
--- NOTE | 2018-09-11 09:03 | PRG ---
DATE OF SERVICE: 09/11/2018 SUBJECTIVE: Mr. Zamora is a 53-year-old male who was seen for his acute kidney injury second rudy to hemodynamically mediated renal dysfunction. His renal function is stable. His hemodynamics h ave been optimized. He has been receiving crystalloids and colloids. He underwent upper GI endoscop y yesterday and it showed the persistence of a mass at the gastroesophageal junction. There was no s urgical recommendation and he has received chemotherapy and ? of radiation in the past. Recommendations to place this patient under hospice. PHYSICAL EXAMINATION: VITAL SIGNS: Blood pressure is 137/75, heart rate 77, respiratory rate 23, pulse ox 100%. GENERAL: The patient is arousable, intubated on ventilator support. SKIN: Adequate turgor. HEENT: He has slightly pale conjunctivae, anicteric sclerae. NECK: No neck mass, no carotid bruits, no JVD. CHEST: No deformities. LUNGS: Decreased breath sounds. No wheezing, no crackles. HEART: Normal sinus rhythm. No murmur, no gallops or rubs. ABDOMEN: Globular, soft, nontender, no masses. EXTREMITIES: No edema, no deformities. MEDICATIONS: 09/11/2018 - Reviewed. LABORATORY DATA: 09/11/2018 - Showed a white count 4.1, hemoglobin 7.6, hematocrit 21.5. Sodium 134 , potassium 4, chloride 112, carbon dioxide 14, BUN 40, creatinine 2.19, GFR 32 mL per minute. Calci um 8.1, ammonia 63. ASSESSMENT AND PLAN: 1. Acute kidney injury -- hemodynamically mediated renal dysfunction. Currently, on salt poor album in infusion as well as gentle diuresis due to previous history of ascites. No indication for any xochilt lytic intervention. 2. Esophageal cancer - re-endoscopy showed a persistent mass. His prognosis remains poor. Please n ote he is status post radiation and chemotherapy. Recommendation by GI is to consider hospice care. 3. Cirrhosis - secondary to chronic hepatitis C. Continue supportive care. Due to the multiple medical problems and poor prognosis will be signing off. Please recall if needed .
--- NOTE | 2018-09-11 09:32 | RAD ---
CHEST 1 VIEW: Date: 09/11/18 HISTORY: Ventilated patient. COMPARISON: Radiograph dated 09/10/18. FINDINGS: There are abnormal increased congestive changes in both upper lobes versus consolidation. No pneumoth orax. Patient is ventilated with the endotracheal tube tip above the melinda approximately 2.5 cm. Ent morena tube tip below diaphragm, although out of field of view. There appears to be a TIPS shunt projec ting over the right upper quadrant of the abdomen. IMPRESSION: Similar examination of chest. POS: [facility]
--- NOTE | 2018-09-11 09:40 | PDOC.PN ---
- Subjective Encounter Start Date: 09/11/18 Encounter Start Time: 09:30 yesterday pt had respiratory distress, he required intubation, he did not tolerate bipap he had endoscopy yesterday and found with esophageal cancer - Objective Resuscitation Status: Resuscitation Status FULL:Full Resuscitation MAR Reviewed: Yes Vital Signs & Weight: Vital Signs (12 hours) Temp Pulse Resp BP 09/11/18 07:49 76 140/86 09/11/18 06:00 26 H 09/11/18 04:00 100.5 F H 29 H 09/11/18 02:34 86 09/11/18 02:00 25 H 09/11/18 00:00 100.5 F H 28 H 09/10/18 22:15 82 09/10/18 22:00 28 H Weight Weight 172 lb 6.424 oz Most Recent Monitor Data Heart Rate from ECG 77 NIBP 137/75 NIBP BP-Mean 95 Respiration from ECG 23 SpO2 100 I&O: 09/10/18 09/11/18 09/12/18 06:59 06:59 06:59 Intake Total 1393 1697.7 Output Total 700 1470 Balance 693 227.7 Result Diagrams: 09/11/18 05:05 09/11/18 05:05 Additional Labs: Accuchecks 09/11/18 09/11/18 09/11/18 06:17 04:46 02:37 POC Glucose 92 77 71 09/10/18 09/10/18 09/10/18 23:50 22:11 20:54 POC Glucose 72 73 76 09/10/18 09/10/18 09/10/18 17:20 13:58 10:00 POC Glucose 93 175 H 231 H Radiology Reviewed by me: Yes (chest xray reviewed ) EKG Reviewed by me: Yes (nsr) Phys Exam - Physical Examination Constitutional: NAD intubated HEENT: PERRLA Neck: no JVD, supple Respiratory: no wheezing, no rales, no rhonchi coarse sound Cardiovascular: RRR, no significant murmur, no rub Gastrointestinal: soft, positive bowel sounds Musculoskeletal: no edema, pulses present unable to assess due to intubated status Lymphatic: no nodes Deviation from normal: unable to assess Skin: no rash, normal turgor Dx/Plan (1) Acute respiratory failure with hypoxemia Code(s): J96.01 - ACUTE RESPIRATORY FAILURE WITH HYPOXIA Status: Acute (2) Acute worsening of stage 3 chronic kidney disease Code(s): N18.3 - CHRONIC KIDNEY DISEASE, STAGE 3 (MODERATE) Status: Acute (3) Anemia due to acute blood loss Code(s): D62 - ACUTE POSTHEMORRHAGIC ANEMIA Status: Acute (4) Hepatic encephalopathy Code(s): K72.90 - HEPATIC FAILURE, UNSPECIFIED WITHOUT COMA Status: Acute (5) Hyperglycemia due to type 2 diabetes mellitus Code(s): E11.65 - TYPE 2 DIABETES MELLITUS WITH HYPERGLYCEMIA Status: Acute (6) Hyponatremia Code(s): E87.1 - HYPO-OSMOLALITY AND HYPONATREMIA Status: Acute (7) Upper GI bleed Code(s): K92.2 - GASTROINTESTINAL HEMORRHAGE, UNSPECIFIED Status: Acute (8) Anxiety and depression Code(s): F41.9 - ANXIETY DISORDER, UNSPECIFIED; F32.9 - MAJOR DEPRESSIVE DISORDER, SINGLE EPISODE, UNSPECIFIED Status: Chronic (9) Chronic hepatitis C Code(s): B18.2 - CHRONIC VIRAL HEPATITIS C Status: Chronic (10) Diabetic nephropathy Status: Chronic (11) Dyslipidemia Code(s): E78.5 - HYPERLIPIDEMIA, UNSPECIFIED Status: Chronic (12) H/O malignant neoplasm of esophagus Code(s): Z85.01 - PERSONAL HISTORY OF MALIGNANT NEOPLASM OF ESOPHAGUS Status: Chronic (13) Hepatic cirrhosis due to chronic hepatitis C infection Code(s): B18.2 - CHRONIC VIRAL HEPATITIS C; K74.60 - UNSPECIFIED CIRRHOSIS OF LIVER Status: Chronic (14) Hypertension Code(s): I10 - ESSENTIAL (PRIMARY) HYPERTENSION Status: Chronic (15) Hypothyroidism Code(s): E03.9 - HYPOTHYROIDISM, UNSPECIFIED Status: Chronic - Plan cont current plan of care, continue antibiotics * medication reviewed as below * symptomatic treatment * ventilator as per pulmonary * his prognosis is very poor * will consult palliative care * continue zosyn * continue albumin as per nephrology. * monitor labs Review of Systems - Review of Systems Other: unable to review due o intubated status - Medications/Allergies Allergies/Adverse Reactions: Allergies Allergy/AdvReac Type Severity Reaction Status Date / Time No Known Allergies Allergy Unverified 09/09/18 17:13 Medications: Current Medications Acetaminophen (Tylenol) 650 mg PO Q4H PRN PRN Reason: Headache/Fever/Mild Pain (1-3) Albumin Human (Albumin 25%) 25 gm IVPB Q6HR [facility] Stop: 09/13/18 06:01 Last Admin: 09/11/18 06:11 Dose: 25 gm Albuterol/Ipratropium (Duoneb) 3 ml NEB [id number] PRN PRN Reason: SOB &/or Wheezing Albuterol/Ipratropium (Duoneb) 3 ml NEB [id number] SCH Last Admin: 09/11/18 07:48 Dose: 3 ml Artificial Tears (Tears Naturale) 2 drop EA EYE PRN PRN PRN Reason: Dry Eyes Atorvastatin Calcium (Lipitor) 40 mg PO [facility] Last Admin: 09/10/18 20:39 Dose: 40 mg Bisacodyl (Dulcolax) 10 mg MT DAILYPRN PRN PRN Reason: Constipation Carvedilol (Coreg) 12.5 mg PO BID [facility] Last Admin: 09/10/18 20:39 Dose: 12.5 mg Dextrose/Water (Dextrose 50%) 25 gm SLOW IVP PRN PRN PRN Reason: Hypoglycemia Duloxetine HCl (Cymbalta) 30 mg PO DAILY [facility] Ferrous Sulfate (Feosol) 325 mg PO BID-[facility] Last Admin: 09/10/18 17:50 Dose: Not Given Furosemide (Lasix) 40 mg PO BID [facility] Last Admin: 09/10/18 20:39 Dose: 40 mg Glucagon (Glucagon) 1 mg IM PRN PRN PRN Reason: Hypoglycemia Hydralazine HCl (Apresoline) 10 mg SLOW IVP Q4H PRN PRN Reason: SBP GREATER THAN 160 Last Admin: 09/10/18 16:34 Dose: 10 mg Hydralazine HCl (Apresoline) 75 mg PO TID [facility] Last Admin: 09/10/18 20:54 Dose: Not Given Dextrose/Water (D5w) 1,000 mls @ 0 mls/hr IV .Q0M PRN PRN Reason: Hypoglycemia Insulin Glargine 5 units/ (Miscellaneous Medication) 0.05 mls @ 0 mls/hr SC HS [facility] Last Admin: 09/10/18 20:55 Dose: Not Given Insulin Glargine 5 units/ (Miscellaneous Medication) 0.05 mls @ 0 mls/hr [facility] Last Admin: 09/10/18 08:46 Dose: 0.05 mls Piperacillin Sod/Tazobactam (Sod 2.25 gm/ Sodium Chloride) 100 mls @ 200 mls/ hr IVPB Q8HR [facility] Last Admin: 09/11/18 06:11 Dose: 100 mls Fentanyl Citrate 2,000 mcg/ (Sodium Chloride) 100 mls @ 0 mls/hr IV INF [facility]; Protocol Stop: 10/10/18 18:32 Fentanyl Citrate (Fentanyl Bolus) 250 mls @ 0 mls/hr IVPB PRN PRN PRN Reason: Breakthrough pain/agitation Stop: 10/10/18 18:32 Insulin Human Lispro (Humalog) 0 units SC .BEDTIME SLIDING SC PRN PRN Reason: Bedtime Correctional Scale Last Admin: 09/10/18 10:02 Dose: 2 unit Insulin Human Lispro (Humalog) 0 units SC .MODERATE SLIDING SC PRN PRN Reason: Moderate Correctional Scale Labetalol HCl (Normodyne) 20 mg SLOW IVP Q4H PRN PRN Reason: SBP GREATER THAN 160 Last Admin: 09/10/18 15:39 Dose: 20 mg Lactulose (Lactulose) 30 gm PO BID [facility] Levothyroxine Sodium (Synthroid) 100 mcg PO 0600 [facility] Last Admin: 09/11/18 06:11 Dose: 100 mcg Lorazepam (Ativan) 2 mg SLOW IVP Q1H PRN PRN Reason: Breakthrough agitation Stop: 10/10/18 18:32 Mineral Oil/White Petrolatum (Eucerin Cream) 0 gm TOP BIDPRN PRN PRN Reason: Dry Skin Miscellaneous Medication (Ventilator Sedation Protocol) 1 each FS ONE [facility] Stop: 10/10/18 18:31 Morphine Sulfate (Morphine Sulfate) 2 mg SLOW IVP Q1H PRN PRN Reason: BREAKTHROUGH PAIN/AGITATION Stop: 10/10/18 18:32 Discontinue Previous Narcotic Pain Medications And Benzodiazepines 1 each FS .ONE [facility] Stop: 10/10/18 18:32 Ondansetron HCl (Zofran) 4 mg IVP Q6H PRN PRN Reason: Nausea/Vomiting Pantoprazole Sodium (Protonix) 40 mg IVP Q12HR [facility] Last Admin: 09/10/18 20:40 Dose: 40 mg Propofol (Diprivan) 1,000 mg IV INF PRN; Protocol PRN Reason: TO ACHIEVE GOAL RASS Stop: 10/10/18 18:32 Propofol (Diprivan Bolus) 20 mg IV Q5MIN PRN PRN Reason: BREAKTHROUGH AGITATION Stop: 10/10/18 18:32 Rifaximin (Xifaxan) 550 mg PO BID [facility] Sodium Chloride ([place] Nasal [place] 0.65%) 0 ml EA NARE QIDPRN PRN PRN Reason: Nasal Congestion Sodium Chloride (Flush - Normal Saline) 10 ml IVF Q12HR [facility] Last Admin: 09/10/18 21:07 Dose: 10 ml Sodium Chloride (Flush - Normal Saline) 10 ml IVF PRN PRN PRN Reason: Saline Flush Terazosin HCl (Hytrin) 5 mg PO HS [facility] Last Admin: 09/10/18 20:39 Dose: 5 mg
--- NOTE | 2018-09-11 09:42 | PRG ---
DATE OF SERVICE: 09/11/2018 SUBJECTIVE: Mr. Zamora had hypoxic respiratory failure following his procedure yesterday with concern for aspiration and he ended up being intubated. He is now in the CCU. Sedation is being weaned off and they are considering extubation later today. Orogastric tube was placed and there was some scan t output of blood tinged gastric contents. No melena. He is hemodynamically stable. OBJECTIVE: VITAL SIGNS: Temperature 100.5, pulse 76, blood pressure 137/75, 100% oxygen saturation on ventilato r. GENERAL: A critically ill, awake with a fluctuating alertness, but unable to answer questions approp riately. HEART: Regular rate and rhythm. LUNGS: Bilateral vent sounds. ABDOMEN: Mild distention with ascites, nontender to palpation. EXTREMITIES: No peripheral edema. LABORATORY STUDIES: Hemoglobin declined to 7.6, WBC 4.1, platelets 166. Sodium 134, potassium 4.0, BUN 40, creatinine 2.19. Ammonia 63. Glucose 92. ASSESSMENT AND PLAN: 1. Esophageal cancer, with persistent bleeding mass at the GE junction despite prior radiation and c hemotherapy. 2. 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 3. Persistent anemia, from a chronic slow gastrointestinal blood loss. 4. Hepatic encephalopathy. 5. 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 6. Ascites, low clinical suspicion for spontaneous bacterial peritonitis. Overall, the patient's prognosis remains quite grim. Again, it is likely that he will continue to snyder ve at least slow bleeding from this distal esophageal mass and associated radiation injury. He shoul d remain on maximal acid suppression, but I doubt that this is going to completely stop the bleeding or make any long-term impact. Given all of his comorbidities and what appears to be, failure of davy tment for his esophageal cancer, hospice care would not be inappropriate.
[2018-09-11] MEDS: Propofol 1,000 MG/100 ML VIAL IV PRN ×2 (11:32→18:00)
[2018-09-11] MEDS: hydrALAZINE 25 MG TAB PO SCH ×3 (11:39→21:58)
[2018-09-11] MEDS: Ferrous Sulfate 325 MG TAB PO SCH ×2 (11:41→17:56)
[2018-09-11] MEDS: Insulin Glargine 5 UNITS in Pre-Filled Syringe SC SCH ×2 (11:41→22:00)
[2018-09-11] MEDS: Furosemide 40 MG TAB PO SCH ×2 (11:42→21:58)
[2018-09-11] MEDS: Carvedilol 6.25 MG TAB PO SCH ×2 (11:42→21:58)
[2018-09-11] MEDS: Rifaximin 550 MG TAB PO SCH ×2 (11:42→21:57)
[2018-09-11] MEDS: DULoxetine 30 MG CAP PO SCH (11:42)
[2018-09-11] MEDS: Pantoprazole 40 MG VIAL IVP SCH ×2 (11:42→21:59)
[2018-09-11] MEDS: HumaLOG 300 UNITS/3 ML VIAL SC PRN (11:45)
[2018-09-11] MEDS: Terazosin HCl 5 MG CAP PO SCH (21:57)
[2018-09-11] MEDS: Atorvastatin Calcium 40 MG TAB PO SCH (21:58)
[2018-09-12] MEDS: Albumin 25% 25 GM/100 ML BOT IVPB SCH ×3 (00:51→10:41)
[2018-09-12] MEDS: Propofol 1,000 MG/100 ML VIAL IV PRN (04:21)
[2018-09-12 04:34] LABS: #Eosinphils 0.1 thou/uL (0.0-0.7); #Lymphocytes 0.4 thou/uL (1.20-3.40); #Monocytes 0.3 thou/uL (0.11-0.59); #Neutrophils 2.9 thou/uL (1.40-6.50); %Basophils 0.2 % (0.0-1.0); %Eosinophils 3.4 % (0.0-10.0); %Lymphocytes 10.8 % (21.0-51.0); %Monocytes 8.6 % (0.0-10.0); %Neutrophils 77.1 % (42.0-75.0); Hemoglobin 6.7 g/dL (14.0-18.0); Mean Corpuscular HGB CONC 34.3 g/dL (32.0-36.0); Mean Corpuscular Hemoglobin 31.9 pg (27.0-31.0); Mean Corpuscular Volume 92.9 fL (78.0-98.0); Mean Platelet Volume 6.8 fL (7.4-10.4); Platelet Count 127 thou/uL (130-400); RBC Distribution Width 15.3 % (11.5-14.5); White Blood Cell (WBC) Count 3.8 thou/uL (4.8-10.8)
[2018-09-12 05:08] LABS: Anion Gap 11 mmol/L (10-20); BUN (Urea Nitrogen) 37 mg/dL (8.4-25.7); Calc. Creatinine Clearance 40 mL/min (70-130); Calcium 8.1 mg/dL (7.8-10.44); Carbon Dioxide 15 mmol/L (22-29); Chloride 115 mmol/L (98-107); Estimated GFR-MDRD 29; Glucose 159 mg/dL (70-105); Potassium 3.9 mmol/L (3.5-5.1); Sodium 137 mmol/L (136-145)
[2018-09-12] MEDS: Piperacillin/Tazobactam 2.25 GM in Sodium Chloride 0.9% 100 ML IVPB SCH (06:17)
[2018-09-12] MEDS: Levothyroxine Sodium 100 MCG TAB PO SCH (06:17)
[2018-09-12 07:17] LABS: Actual Bicarbonate (HCO3a) 16.8 mEq/L (22-28); Base Excess (BEa) -6.8 mEq/L (-2.0 to +3.0); Calcium, Ionized 1.12 mmol/L (1.12-1.30); Carboxyhemoglobin (COHb) 1.7 gm% (0.0-3.0); Hemoglobin (Hb) 6.6 g/dL (14.0-18.0); O2 Tension (PaO2) 132.8 mmHg (80.0-100.0); Potassium - ABG Lab 3.84 mmol/L (3.70-5.30); pH, Arterial 7.43 (7.35-7.45)
[2018-09-12 07:21] LABS: Puncture Site RB
--- NOTE | 2018-09-12 09:23 | PRG ---
DATE OF SERVICE: 09/12/2018 This morning he is a little bit more responsive. He is off all sedation. LABORATORY: Creatinine 2.3, BUN is 37, glucose 151, pO2 132, pCO2 26, pH 7.43. White count is 3, H&H is 6 and 19. I was told by ICU nurses that GI came by and stated that he has got recurrent cancer of his esophagus . Continued slow oozing. PHYSICAL EXAMINATION: VITAL SIGNS: Pulse 59, blood pressure is 140/87, sats are 97% , respirations 22. GENERAL: He is awake, a little bit more responsive this morning. CHEST: Chest reveals bilateral rhonchi and crackles. CARDIAC: Normal S1, S2. No gallops. ABDOMEN: Soft, no masses. IMPRESSION: 1. Possible aspiration. 2. Gastrointestinal bleeding. 3. Cancer of the esophagus. 4. Severe deconditioning. 5. Cirrhosis. PLAN: Apparently the patient's brother is agreeable to make the patient a DNR. We will get 2 physic ians to sign an order. We will try and wean and extubate today. Continue transfusion of a unit of p acked cells. One-half hour critical care time.
[2018-09-12] MEDS ORDERED: cefOXitin 2 GM in Sodium Chloride 0.9% 100 ML IVPB SCH (10:00)
--- NOTE | 2018-09-12 10:02 | RAD ---
PORTABLE CHEST: Date: 09/12/18 HISTORY: Ventilator and CCU follow-up. Dyspnea. COMPARISON: 09/11/18. FINDINGS/IMPRESSION: ET tube and NG tube are unchanged. Left perihilar infiltrate and left basilar infiltrate or atelectas is obscures the left hemidiaphragm. No significant interval change. POS: [facility]
[2018-09-12] MEDS ORDERED: DC Sedation Protocol FS ONE (10:05)
[2018-09-12] MEDS: HumaLOG 300 UNITS/3 ML VIAL SC PRN (10:40)
[2018-09-12] MEDS: Pantoprazole 40 MG VIAL IVP SCH ×2 (10:41→21:32)
[2018-09-12] MEDS: Ferrous Sulfate 325 MG TAB PO SCH ×2 (10:41→15:51)
[2018-09-12] MEDS: hydrALAZINE 25 MG TAB PO SCH ×3 (10:42→21:21)
[2018-09-12] MEDS: Furosemide 40 MG TAB PO SCH ×2 (10:42→21:32)
[2018-09-12] MEDS: Carvedilol 6.25 MG TAB PO SCH ×2 (10:42→21:21)
[2018-09-12] MEDS: Rifaximin 550 MG TAB PO SCH ×2 (10:42→21:31)
[2018-09-12] MEDS: DULoxetine 30 MG CAP PO SCH (10:43)
[2018-09-12] MEDS: Sodium Chloride 0.9% 1,000 ML IV SCH ×2 (10:44→18:05)
[2018-09-12] MEDS: Insulin Glargine 5 UNITS in Pre-Filled Syringe SC SCH ×2 (10:46→21:23)
--- NOTE | 2018-09-12 13:00 | PRG ---
DATE OF SERVICE: 09/12/2018 SUBJECTIVE: The patient is intubated and he is sedated, but does awaken and make eye contact. OBJECTIVE: VITAL SIGNS: Temperature 98.5, pulse 58, respirations 15, O2 sat 100% on vent, BP 143/81. GENERAL APPEARANCE: Intubated, slightly sedated. HEART: Regular, without murmurs. LUNGS: Generally clear bilaterally. ABDOMEN: Soft and nontender. EXTREMITIES: Warm and dry with some mild puffy edema of the hands. LABORATORY DATA: White count 3.8, hemoglobin 6.7, platelets 127. ABG with pH 7.4, pCO2 of 26, pO2 of 132.8. Sodium 137, potassium 3.9, chloride 115, CO2 is 15, BUN 37, creatinine 2.33. Respiratory culture is growing Klebsiella resistant to the Zosyn. Urine culture is negative. IMPRESSION AND PLAN: 1. Upper gastrointestinal bleed. 2. Acute blood loss anemia, receiving 1 unit of blood today. 3. Recurrent esophageal cancer with a history of prior chemoradiation per Gastroenterology. Patient's treatment options are minimal at this point and prognosis is very poor, as this mass continues to bleed. 4. Radiation esophagitis. 5. Hepatic encephalopathy. 6. End-stage liver disease, secondary to cirrhosis from hepatitis C. 7. Chronic kidney disease with estimated GFR of 29, making him stage 4. 8. Possible pneumonia with Klebsiella on respiratory cultures, on Zosyn now. We will add Mefoxin to cover that. 9. Diastolic dysfunction on echocardiogram with an EF of 55%-60%. 10. Hepatic encephalopathy. The patient is receiving lactulose and Xifaxan. DISPOSITION: This patient has apparent recurrent esophageal cancer in spite of prior chemo and radiation, which is now bleeding without good options for resolving this. Recommendation is for hospice. Palliative Care team is involved. Dr. Mcnamara apparently spoke to a brother, who was amenable to making the patient DNR. We will allow case management and Palliative Care team to help work through those issues. However, the patient appears to be nearing the point of extubation. Given his encephalopathy, he may not still be able to help as much with decision making as his family members, but may be appropriate for hospice setting. [facility]
[2018-09-12 14:19] LABS: Hep C PCR-Quant 355000 IU/mL (.)
[2018-09-12] MEDS: cefOXitin Sodium 1 GM in Sodium Chloride 0.9% 100 ML IVPB SCH ×2 (15:48→21:32)
--- NOTE | 2018-09-12 19:51 | PRG ---
DATE OF SERVICE: 09/12/2018 I had a long discussion with the patient's sister, Milady Rondon, after receiving the appropriate pi n number and having been given permission from the warden to speak to the family regarding the patien t's condition. I explained in detail of the patient's recurrent cancer with bleeding and radiation e sophagitis with bleeding on top of end-stage liver disease with hepatic encephalopathy. I explained the patient's terminal condition and lack of treatment options. She had numerous questions about how long he had been here where he would be going from here what kind of access they might have to the p atient whether he was in pain and how we would manage his pain. Deferred many of her questions regar ding visitation and such to [facility]. However, ultimately, she is amenable to a DNR and she will be comi ng tomorrow and try to visit with the patient and see if we can establish some sort of compassionate visitation for other family members. Total time in advance care planning was 23 minutes.
[2018-09-12] MEDS: Terazosin HCl 5 MG CAP PO SCH (21:32)
[2018-09-12] MEDS: Acetaminophen 325 MG TAB PO PRN (21:48)
[2018-09-13] MEDS: cefOXitin Sodium 1 GM in Sodium Chloride 0.9% 100 ML IVPB SCH ×3 (05:14→21:10)
[2018-09-13] MEDS: Levothyroxine Sodium 100 MCG TAB PO SCH (05:15)
[2018-09-13 05:28] LABS: #Eosinphils 0.3 thou/uL (0.0-0.7); #Lymphocytes 0.4 thou/uL (1.20-3.40); #Monocytes 0.4 thou/uL (0.11-0.59); #Neutrophils 4.1 thou/uL (1.40-6.50); %Basophils 0.3 % (0.0-1.0); %Eosinophils 4.9 % (0.0-10.0); %Lymphocytes 8.3 % (21.0-51.0); %Monocytes 7.9 % (0.0-10.0); %Neutrophils 78.6 % (42.0-75.0); Hemoglobin 8.8 g/dL (14.0-18.0); Mean Corpuscular HGB CONC 34.1 g/dL (32.0-36.0); Mean Corpuscular Hemoglobin 31.8 pg (27.0-31.0); Mean Platelet Volume 6.9 fL (7.4-10.4); Platelet Count 133 thou/uL (130-400); RBC Distribution Width 15.2 % (11.5-14.5); Red Blood Cell (RBC) Count 2.78 mill/uL (4.70-6.10); White Blood Cell (WBC) Count 5.2 thou/uL (4.8-10.8)
[2018-09-13 05:54] LABS: Anion Gap 12 mmol/L (10-20); BUN (Urea Nitrogen) 34 mg/dL (8.4-25.7); Calc. Creatinine Clearance 41 mL/min (70-130); Calcium 8.2 mg/dL (7.8-10.44); Carbon Dioxide 15 mmol/L (22-29); Chloride 116 mmol/L (98-107); Estimated GFR-MDRD 30; Glucose 73 mg/dL (70-105); Potassium 3.9 mmol/L (3.5-5.1); Sodium 139 mmol/L (136-145)
--- NOTE | 2018-09-13 08:55 | RAD ---
CHEST 1 VIEW: HISTORY: A 53-year-old male with respiratory insufficiency. COMPARISON: 09/12/2018. FINDINGS: The previously noted NG tube and endotracheal tubes have been removed. There are persistent alveolar nodular parenchymal changes in the left mid and lower lung zone raising concern for some left perihi lar pneumonia in addition to some mild vascular congestion. IMPRESSION: Persistent but overall stable patchy alveolar nodular parenchymal changes in the left mid and lower l lucille zone raising concern for left lung pneumonia. Mild vascular congestion. No overt new process. Continued short-term followup for complete clearing. POS: [facility]
[2018-09-13] MEDS: hydrALAZINE 25 MG TAB PO SCH ×3 (09:01→21:08)
[2018-09-13] MEDS: DULoxetine 30 MG CAP PO SCH (09:04)
[2018-09-13] MEDS: Rifaximin 550 MG TAB PO SCH ×2 (09:04→21:09)
[2018-09-13] MEDS: Ferrous Sulfate 325 MG TAB PO SCH ×2 (09:04→17:48)
[2018-09-13] MEDS: Furosemide 40 MG TAB PO SCH ×2 (09:04→21:09)
[2018-09-13] MEDS: Carvedilol 6.25 MG TAB PO SCH ×2 (09:05→21:08)
[2018-09-13] MEDS: Pantoprazole 40 MG VIAL IVP SCH ×2 (09:06→21:09)
[2018-09-13] MEDS: Insulin Glargine 5 UNITS in Pre-Filled Syringe SC SCH ×2 (09:08→21:14)
--- NOTE | 2018-09-13 09:26 | PRG ---
DATE OF SERVICE: 09/13/2018 SUBJECTIVE: This morning, he is awake, alert, and responsive, having breakfast. Denies difficulty b reathing. OBJECTIVE: VITAL SIGNS: Blood pressure 155/79, sats are 96% on room air, respirations 19, temperature 98, pulse 50. CHEST: Decreased breath sounds, no wheezing. CARDIAC: Normal S1 and S2. No gallops. ABDOMEN: Soft, no masses. LABORATORY DATA: His creatinine is 2.2, probably at his baseline. His white count is 5, H and H is 8 and 25, stable. Klebsiella in his respiratory bronch washings, sensitive to cefoxitin. IMPRESSION: 1. Tracheobronchial aspiration. 2. Gastrointestinal bleed. 3. Carcinoma of the esophagus. 4. Hypertension. 5. Renal failure. PLAN: He can be transferred back to the intermediate system. Try to make him a DNR. Avoid sedation. Continue antibiotics.
[2018-09-13] MEDS: HumaLOG 300 UNITS/3 ML VIAL SC PRN (12:50)
--- NOTE | 2018-09-13 13:20 | PRG ---
DATE OF SERVICE: 09/13/2018 SUBJECTIVE: The patient is awake. He is conversant today. He says he feels okay, he has no complai nts. OBJECTIVE: VITAL SIGNS: Temperature 98.3, pulse 50, blood pressure 155/79. GENERAL: Age appropriate male who appears very chronically ill. He is a bit jaundiced. He has some slight psychomotor delay. He is oriented to person, states it is . Otherwise, there has a ruby rly appropriate conversation and asked appropriate questions. He has multiple family members in the room with him today. HEART: Regular rate and rhythm. LUNGS: Clear. ABDOMEN: Distended, but not tight. EXTREMITIES: He still have trace edema in the lower extremities. LABORATORY DATA AND IMAGING: White count 5.2, hemoglobin 8.8. BUN is 34, creatinine is 2.29, CO2 is 15. Chest x-ray shows some patchy alveolar nodular parenchymal changes in the left mid and lower bradly ng zone concerning for possible pneumonia. IMPRESSION AND PLAN: 1. Upper gastrointestinal bleeding. The patient has received a transfusion. It appears the source is recurrent esophageal cancer and radiation esophagitis. 2. Acute blood loss anemia, slightly improved after a unit of transfusion yesterday. 3. Recurrent esophageal cancer status post chemotherapy and radiation. Very poor prognosis. GI had no treatment options possible at this point and encouraged palliative care. 4. Radiation esophagitis with bleeding. 5. Hepatic encephalopathy appears to be somewhat improved. Today, he still has some slight confusio n and some psychomotor delay, but clearly better. 5. End-stage liver disease with cirrhosis secondary to hepatitis C. 6. Chronic kidney disease stage 4. 7. Pneumonia with Klebsiella on Mefoxin and Zosyn. He is generally stable, go ahead and stop the Zo syn today. 8. Diastolic dysfunction with systolic function, yielding an EF of 55%-60%. DISPOSITION: A long conversation with the patient regarding his diagnosis, his lack of viable treatm ent options and the fact that we have no way to specifically stop the bleeding related to the cancer and radiation esophagitis, something major like a surgery which he would not tolerate from an i nfectious and hepatic standpoint. I discussed the plan [place] [facility] [place] [facility] and that he remains a do not resuscitate at this [facility]. The patient asked very appropriate questions and understands the situation well and had no furt her questions for me.
[2018-09-13] MEDS: Sodium Chloride 0.9% 1,000 ML IV SCH (15:10)
[2018-09-13] MEDS: Acetaminophen 325 MG TAB PO PRN (17:49)
[2018-09-13] MEDS: Terazosin HCl 5 MG CAP PO SCH (21:09)
[2018-09-14] MEDS ORDERED: diphenhydrAMINE 2% CREAM 28.4 GM TUBE TOP PRN (00:53)
[2018-09-14 05:14] LABS: #Eosinphils 0.3 thou/uL (0.0-0.7); #Lymphocytes 0.5 thou/uL (1.20-3.40); #Monocytes 0.5 thou/uL (0.11-0.59); #Neutrophils 3.4 thou/uL (1.40-6.50); %Eosinophils 5.8 % (0.0-10.0); %Lymphocytes 10.2 % (21.0-51.0); %Monocytes 10.1 % (0.0-10.0); %Neutrophils 73.8 % (42.0-75.0); Hemoglobin 8.9 g/dL (14.0-18.0); Mean Corpuscular HGB CONC 32.9 g/dL (32.0-36.0); Mean Corpuscular Hemoglobin 30.6 pg (27.0-31.0); Mean Corpuscular Volume 92.9 fL (78.0-98.0); Mean Platelet Volume 6.9 fL (7.4-10.4); Platelet Count 135 thou/uL (130-400); RBC Distribution Width 15.2 % (11.5-14.5); Red Blood Cell (RBC) Count 2.92 mill/uL (4.70-6.10); White Blood Cell (WBC) Count 4.6 thou/uL (4.8-10.8)
[2018-09-14] MEDS: cefOXitin Sodium 1 GM in Sodium Chloride 0.9% 100 ML IVPB SCH ×3 (05:14→21:07)
[2018-09-14] MEDS: Levothyroxine Sodium 100 MCG TAB PO SCH (05:14)
[2018-09-14 05:31] LABS: Anion Gap 9 mmol/L (10-20); BUN (Urea Nitrogen) 32 mg/dL (8.4-25.7); Calc. Creatinine Clearance 41 mL/min (70-130); Carbon Dioxide 18 mmol/L (22-29); Chloride 115 mmol/L (98-107); Estimated GFR-MDRD 31; Glucose 115 mg/dL (70-105); Potassium 3.6 mmol/L (3.5-5.1); Sodium 138 mmol/L (136-145)
--- NOTE | 2018-09-14 09:22 | PRG ---
DATE OF SERVICE: 09/14/2018 Mr. Zamora this morning is awake, alert, responsive. PHYSICAL EXAMINATION: VITAL SIGNS: Sats are 100% on room air, temperature 98, pulse 99. No respiratory distress. CHEST: Chest reveals decreased breath sounds, no wheezing. CARDIAC: Normal S1, S2. ABDOMEN: Soft, no masses. LABORATORY: H&H is stable 8 and 27, platelet count is normal. Electrolytes are normal. Creatinine 2.2. IMPRESSION: 1. Gastrointestinal bleed. 2. Oesophus cancer. 3. Respiratory failure. 4. Aspiration pneumonia. PLAN: He is to be transferred back to the [facility] system with ongoing care. He is a DNR. [facility]
[2018-09-14] MEDS: Pantoprazole 40 MG VIAL IVP SCH ×2 (09:54→21:04)
[2018-09-14] MEDS: DULoxetine 30 MG CAP PO SCH (09:54)
[2018-09-14] MEDS: Carvedilol 6.25 MG TAB PO SCH ×2 (09:55→21:05)
[2018-09-14] MEDS: hydrALAZINE 25 MG TAB PO SCH ×3 (09:55→21:04)
[2018-09-14] MEDS: Rifaximin 550 MG TAB PO SCH ×2 (09:55→21:04)
[2018-09-14] MEDS: Furosemide 40 MG TAB PO SCH ×2 (09:55→21:04)
[2018-09-14] MEDS: Ferrous Sulfate 325 MG TAB PO SCH ×2 (10:00→15:31)
[2018-09-14] MEDS: Insulin Glargine 5 UNITS in Pre-Filled Syringe SC SCH ×2 (12:34→21:06)
[2018-09-14] MEDS: HumaLOG 300 UNITS/3 ML VIAL SC PRN ×2 (12:36→16:12)
[2018-09-14] MEDS ORDERED: Acetaminophen 325 MG TAB PO PRN (18:34)
[2018-09-14] MEDS: traMADol HCl 50 MG TAB PO PRN (18:39)
[2018-09-14] MEDS: Terazosin HCl 5 MG CAP PO SCH (21:04)
[2018-09-15] MEDS: Levothyroxine Sodium 100 MCG TAB PO SCH (05:05)
[2018-09-15] MEDS: cefOXitin Sodium 1 GM in Sodium Chloride 0.9% 100 ML IVPB SCH ×3 (05:05→21:24)
[2018-09-15] MEDS: HumaLOG 300 UNITS/3 ML VIAL SC PRN ×2 (05:36→12:19)
[2018-09-15 05:57] LABS: #Eosinphils 0.2 thou/uL (0.0-0.7); #Lymphocytes 0.5 thou/uL (1.20-3.40); #Monocytes 0.4 thou/uL (0.11-0.59); #Neutrophils 2.9 thou/uL (1.40-6.50); %Basophils 0.5 % (0.0-1.0); %Eosinophils 5.7 % (0.0-10.0); %Lymphocytes 12.8 % (21.0-51.0); %Monocytes 10.1 % (0.0-10.0); %Neutrophils 70.9 % (42.0-75.0); Hemoglobin 9.4 g/dL (14.0-18.0); Mean Corpuscular HGB CONC 32.9 g/dL (32.0-36.0); Mean Corpuscular Hemoglobin 30.6 pg (27.0-31.0); Mean Platelet Volume 7.1 fL (7.4-10.4); Platelet Count 142 thou/uL (130-400); RBC Distribution Width 15.1 % (11.5-14.5); Red Blood Cell (RBC) Count 3.07 mill/uL (4.70-6.10); White Blood Cell (WBC) Count 4.1 thou/uL (4.8-10.8)
[2018-09-15 06:26] LABS: Anion Gap 9 mmol/L (10-20); BUN (Urea Nitrogen) 34 mg/dL (8.4-25.7); Calc. Creatinine Clearance 35 mL/min (70-130); Calcium 8.1 mg/dL (7.8-10.44); Carbon Dioxide 18 mmol/L (22-29); Chloride 114 mmol/L (98-107); Estimated GFR-MDRD 26; Glucose 233 mg/dL (70-105); Potassium 3.9 mmol/L (3.5-5.1); Sodium 137 mmol/L (136-145)
[2018-09-15] MEDS: Carvedilol 6.25 MG TAB PO SCH ×2 (08:13→21:20)
[2018-09-15] MEDS: Rifaximin 550 MG TAB PO SCH ×2 (08:13→21:20)
[2018-09-15] MEDS: Insulin Glargine 5 UNITS in Pre-Filled Syringe SC SCH ×2 (08:14→21:19)
[2018-09-15] MEDS: DULoxetine 30 MG CAP PO SCH (08:14)
[2018-09-15] MEDS: Pantoprazole 40 MG VIAL IVP SCH ×2 (08:15→21:24)
[2018-09-15] MEDS: Furosemide 40 MG TAB PO SCH ×2 (08:15→21:20)
[2018-09-15] MEDS: hydrALAZINE 25 MG TAB PO SCH ×3 (08:15→21:20)
[2018-09-15] MEDS: Ferrous Sulfate 325 MG TAB PO SCH ×2 (08:15→18:08)
--- NOTE | 2018-09-15 09:29 | PRG ---
DATE OF SERVICE: 09/15/2018 This morning he is awake, alert, responsive, in no distress. Still trying to get him to [facility]. PHYSICAL EXAMINATION: VITAL SIGNS: Blood pressure 127/70, temperature 98, respiration rate 18. CHEST: Chest reveals no wheezing, no crackles. CARDIAC: Normal S1, S2. ABDOMEN: Soft, no masses. LABORATORY DATA: Creatinine 2.5. White count 4,000, H&H 9 and 28. IMPRESSION: 1. Gastrointestinal bleed. 2. Carcinoma of the esophagus. 3. Aspiration pneumonia. 4. Respiratory failure, resolved. 5. Hepatitis C. PLAN: Pulmonary Critical Care will follow at a distance. I would switch him to an oral antibiotic i f possible. Discontinue daily lab.
[2018-09-15 11:14] VITALS: BMI 27.8
[2018-09-15] MEDS: traMADol HCl 50 MG TAB PO PRN (15:12)
[2018-09-15] MEDS ORDERED: Ondansetron ODT 4 MG TAB PO SCH (18:15)
[2018-09-15 21:18] VITALS: BP 143/83; TEMP 97.7
[2018-09-15] MEDS: Terazosin HCl 5 MG CAP PO SCH (21:20)
== END 2018-09-15 23:00 | disposition short-term general hospital (02) | DRG 374 ==
LOC: EEVIPCON 12:57 → ERS 12:57 → IMCU/EMU 15:50 → CCU 09-10 18:15 → T4-B 09-12 17:59
PROVIDERS: ADMIT Internal Medicine; ATTEND Internal Medicine
PROC: 0DJ08ZZ Inspection of Upper Intestinal Tract, Via Natural or Artificial Opening Endoscopic (ICD-10-PCS; principal; 2018-09-10)
PROC: 30233N1 Transfusion of Nonautologous Red Blood Cells into Peripheral Vein, Percutaneous Approach (ICD-10-PCS; 2018-09-10)
DX: C15.9 Malignant neoplasm of esophagus, unspecified (principal); J69.0 Pneumonitis due to inhalation of food and vomit; J96.90 Respiratory failure, unspecified, unspecified whether with hypoxia or hypercapnia; K92.2 Gastrointestinal hemorrhage, unspecified; N17.9 Acute kidney failure, unspecified; D62 Acute posthemorrhagic anemia; J44.0 Chronic obstructive pulmonary disease with (acute) lower respiratory infection; R18.8 Other ascites; N18.4 Chronic kidney disease, stage 4 (severe); K72.90 Hepatic failure, unspecified without coma; I12.9 Hypertensive chronic kidney disease with stage 1 through stage 4 chronic kidney disease, or unspecified chronic kidney disease; E11.22 Type 2 diabetes mellitus with diabetic chronic kidney disease; E11.65 Type 2 diabetes mellitus with hyperglycemia; E78.5 Hyperlipidemia, unspecified; E03.9 Hypothyroidism, unspecified; T68.XXXA Hypothermia, initial encounter; F41.9 Anxiety disorder, unspecified; F32.9 Major depressive disorder, single episode, unspecified; J44.9 Chronic obstructive pulmonary disease, unspecified; B18.2 Chronic viral hepatitis C; K74.60 Unspecified cirrhosis of liver; K20.8 Other esophagitis; Z85.01 Personal history of malignant neoplasm of esophagus
CPT/HCPCS: 36415; 36416; 36430; 71045; 76770; 80048; 80053; 80074; 81001; 82140; 82533; 82570; 82728; 82805; 83036; 83735; 83930; 83935; 84100; 84300; 84443; 85025; 85610; 86850; 86900; 86901; 87070; 87077; 87086; 87186; 87205; 87522; 90471; 90670; 93306; 94002; 94003; 94150; 94640; 94660; 99285; C9113; G0009; J0360; J0694; J0696; J2354; J2543; J2704; J7050; J7620; P9016; P9047; Q0162